=== PATIENT | female | born 1990 | race Caucasian/White ===

== ENCOUNTER 2016-10-11 16:25 | Emergency (ER) | payer OTHER ==
[2016-10-11 17:30] LABS: BASO % 0.2 % (0.1-1.2); EOS # 0.1 10_X3_uL (0.0-0.4); EOS % 0.6 % (0.7-5.8); GRAN % 79.6 % (34.0-71.1); HEMATOCRIT 40.9 % (34-45); HEMOGLOBIN 14.1 g/dL (11.2-15.7); LYMPH # 1.3 10_X3_uL (1.2-3.7); LYMPH % 12.9 % (19.3-51.7); MEAN CORPUSCULAR HEMOGLOBIN 31.4 pg (27.0-33.0); MEAN CORPUSCULAR HGB CONC 34.5 g/dL (32.0-36.0); MEAN CORPUSCULAR VOLUME 91.1 fL (79-95); MEAN PLATELET VOLUME 11.2 fl (7.5-11.5); MONO # 0.7 10_X3_uL (0.2-0.9); MONO % 6.7 % (4.7-12.5); PLATELET COUNT 264 x10_3/uL (182-369); RED BLOOD COUNT 4.49 x10_6/uL (3.9-5.2); RED CELL DISTRIBUTION WIDTH 11.9 % (11.7-14.4)
[2016-10-11 17:51] LABS: ALBUMIN 4.4 gm/dL (3.4-5.0); ALKALINE PHOSPHATASE 49 U/L (50-136); ALT/SGPT 9 U/L (3.5-33.9); AST/SGOT 12 U/L (7.04-26.96); BLOOD UREA NITROGEN 11 mg/dL (7-18); CALCIUM 9.2 mg/dL (8.7-10.7); CARBON DIOXIDE 25 mmol/L (21-32); CREATINE KINASE 67 U/L (21-215); CREATININE 0.6 mg/dL (0.6-1.3); GLUCOSE,RANDOM 91 mg/dL (70-99); POTASSIUM 4.2 mmol/L (3.5-5.1); SODIUM 140 mmol/L (136-145); TOTAL PROTEIN 7.2 gm/dL (6.4-8.2)
[2016-10-11 18:22] LABS: URINE BILIRUBIN 1+ (NEGATIVE); URINE BLOOD 2+ (NEGATIVE); URINE GLUCOSE (UA) NORMAL (NORMAL); URINE KETONE NEGATIVE (NEGATIVE); URINE LEUKOCYTE ESTERASE TRACE (NEGATIVE); URINE NITRATE NEGATIVE (NEGATIVE); URINE PROTEIN TRACE (NEGATIVE)
[2016-10-11 18:41] LABS: URINE BACTERIA FEW (NONE SEEN); URINE MUCUS 2+; URINE SQUAMOUS EPITHELIAL CELL 0-10 /[HPF] (NONE SEEN); URINE WBC 0-5 /[HPF] (0-5); URINE YEAST FEW (NONE SEEN)
== END 2016-10-11 18:57 | disposition home or self-care (01) ==
LOC: ER 16:25
PROVIDERS: Internal Medicine
DX: R55 Syncope and collapse (principal); I95.9 Hypotension, unspecified; R42 Dizziness and giddiness; Z88.5 Allergy status to narcotic agent; F17.210 Nicotine dependence, cigarettes, uncomplicated
CPT/HCPCS: 36415; 80053; 80307; 81001; 81025; 82550; 82553; 85025; 93005; 99070; 99284-25